=== PATIENT | female | born 1950 ===

== ENCOUNTER 2018-11-30 15:42 | Emergency (ER) | payer MEDICARE, MEDICAID ==
[2018-11-30 15:55] VITALS: O2SAT 98
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
[2018-11-30 19:55] VITALS: BP 146/78; PULSE 92; RESP 16; TEMP 98
== END 2018-11-30 19:54 | disposition home or self-care (01) ==
LOC: H.ER 15:42
DX: M25.519 Pain in unspecified shoulder (principal); K08.89 Other specified disorders of teeth and supporting structures; V43.62XA Car passenger injured in collision with other type car in traffic accident, initial encounter; Y92.410 Unspecified street and highway as the place of occurrence of the external cause; E11.9 Type 2 diabetes mellitus without complications; E78.00 Pure hypercholesterolemia, unspecified; G89.29 Other chronic pain; I10 Essential (primary) hypertension